=== PATIENT | male | born 1960 | race Caucasian/White ===

== ENCOUNTER 2021-03-28 14:13 | Outpatient (REF) | payer MEDICAID, SELFPAY ==
[2021-03-29 07:32] LABS: Estimated Average Glucose 160 mg/dL; Hemoglobin A1c % 7.2 %
== END 2021-03-28 14:14 | disposition home or self-care (01) ==
LOC: HO.HMGCLDS 14:13
PROVIDERS: PCP Internal Medicine; Visit Provider Internal Medicine
DX: E13.9 Other specified diabetes mellitus without complications (principal)
CPT/HCPCS: 36415; 83036

== ENCOUNTER 2021-10-02 13:05 | Outpatient (REF) | payer MEDICAID, SELFPAY ==
[2021-10-02 13:57] LABS: MANUAL DIFF FLAG NO
[2021-10-02 14:01] LABS: Basophils Percent Auto 0.5 % (0-2); Eosinophils Absolute Auto 0.3 X10*3/uL (0.0-0.4); Eosinophils Percent Auto 4.7 % (0-4); Hematocrit 42.4 % (42.0-52.0); Imm Gran Abs Auto 0.02 X10*3/uL (0.00-0.03); Imm Gran Pct Auto 0.4 % (0.0-0.4); Lymphocytes Absolute Auto 2.3 X10*3/uL (1.2-4.9); Lymphocytes Percent Auto 39.5 % (20-40); Mean Corpuscular Hemoglobin 28.2 pg (27.0-33.0); Mean Corpuscular Volume 85.5 fL (80.0-98.0); Mean Platelet Volume 11.4 fL (9.4-12.4); Monocytes Absolute Auto 0.7 X10*3/uL (0.1-1.2); Monocytes Percent Auto 11.4 % (2-11); Neutrophils Absolute Auto 2.5 x10*3/uL (2.0-8.3); Neutrophils Percent Auto 43.5 % (45-73); Platelet Count 232 X10*3/uL (160-400); Red Blood Count 4.96 X10*6/uL (4.60-5.80); Red Cell Distribution Width 12.8 % (11.0-16.0); White Blood Count 5.7 X10*3/uL (4.8-10.8)
[2021-10-02 14:12] LABS: Estimated Average Glucose 214 mg/dL; Hemoglobin A1c % 9.1 %
[2021-10-02 14:25] LABS: Anion Gap 15 (12-20); Blood Urea Nitrogen 14 mg/dL (9-16); Carbon Dioxide 25 mmol/L (22-29); Chloride 102 mmol/L (96-108); Potassium 4.4 mmol/L (3.3-5.1); Sodium 138 mmol/L (135-145)
[2021-10-02 14:26] LABS: Calcium 9.7 mg/dL (8.4-10.2); Cholesterol 145 mg/dL; Estimated Glomerular Filt Rate > 60; Glucose Random 278 mg/dL (60-115); HDL Cholesterol 40 mg/dL; LDL Cholesterol Calculated 87 mg/dl; Triglycerides 93 mg/dL
== END 2021-10-02 13:06 | disposition home or self-care (01) ==
LOC: HO.HMGCLDS 13:05
PROVIDERS: Visit Provider Internal Medicine
DX: E13.9 Other specified diabetes mellitus without complications (principal); E78.5 Hyperlipidemia, unspecified
CPT/HCPCS: 36415; 80048; 80061; 83036; 85025

== ENCOUNTER 2022-03-28 10:41 | Outpatient (REF) | payer MEDICAID, SELFPAY ==
[2022-03-28 14:10] LABS: Estimated Average Glucose 126 mg/dL
== END 2022-03-28 10:42 | disposition home or self-care (01) ==
LOC: HO.HMGCLDS 10:41
PROVIDERS: PCP Internal Medicine; Visit Provider Internal Medicine
DX: E11.65 Type 2 diabetes mellitus with hyperglycemia (principal)
CPT/HCPCS: 36415; 83036

== ENCOUNTER 2022-06-28 11:40 | Outpatient (REF) | payer MEDICAID, SELFPAY ==
[2022-06-28 14:12] LABS: Cholesterol 170 mg/dL; HDL Cholesterol 58 mg/dL; LDL Cholesterol Calculated 99 mg/dl; Triglycerides 67 mg/dL
== END 2022-06-28 11:41 | disposition home or self-care (01) ==
LOC: HO.HMGCLDS 11:40
PROVIDERS: PCP Internal Medicine; Visit Provider Internal Medicine
DX: E78.5 Hyperlipidemia, unspecified (principal)
CPT/HCPCS: 36415; 80061

== ENCOUNTER 2022-09-14 11:03 | Outpatient (REF) | payer MEDICAID, SELFPAY ==
[2022-09-14 14:05] LABS: MANUAL DIFF FLAG NO
[2022-09-14 14:13] LABS: Basophils Absolute Auto 0.1 X10*3/uL (0.0-0.2); Basophils Percent Auto 0.7 % (0-2); Eosinophils Absolute Auto 0.3 X10*3/uL (0.0-0.4); Eosinophils Percent Auto 3.7 % (0-4); Hematocrit 39.6 % (42.0-52.0); Imm Gran Abs Auto 0.03 X10*3/uL (0.00-0.03); Imm Gran Pct Auto 0.4 % (0.0-0.4); Lymphocytes Absolute Auto 2.5 X10*3/uL (1.2-4.9); Lymphocytes Percent Auto 32.6 % (20-40); Mean Corpuscular HGB Conc 32.8 g/dl (31.0-36.0); Mean Corpuscular Hemoglobin 28.1 pg (27.0-33.0); Mean Corpuscular Volume 85.5 fL (80.0-98.0); Mean Platelet Volume 11.9 fL (9.4-12.4); Monocytes Absolute Auto 0.7 X10*3/uL (0.1-1.2); Monocytes Percent Auto 9.4 % (2-11); Neutrophils Absolute Auto 4.1 x10*3/uL (2.0-8.3); Neutrophils Percent Auto 53.2 % (45-73); Platelet Count 212 X10*3/uL (160-400); Red Blood Count 4.63 X10*6/uL (4.60-5.80); Red Cell Distribution Width 12.3 % (11.0-16.0); White Blood Count 7.6 X10*3/uL (4.8-10.8)
[2022-09-14 14:32] LABS: Anion Gap 11 (12-20); Blood Urea Nitrogen 15 mg/dL (9-16); Calcium 9.7 mg/dL (8.4-10.2); Carbon Dioxide 29 mmol/L (22-29); Chloride 103 mmol/L (96-108); Estimated Glomerular Filt Rate 56; Glucose Random 256 mg/dL (60-115); Potassium 4.8 mmol/L (3.3-5.1); Sodium 138 mmol/L (135-145)
[2022-09-17 00:27] LABS: LDL Cholesterol Direct 75 mg/dL (<100)
== END 2022-09-14 11:04 | disposition home or self-care (01) ==
LOC: HO.HMGCLDS 11:03
PROVIDERS: Visit Provider Internal Medicine
DX: E87.5 Hyperkalemia (principal); E78.5 Hyperlipidemia, unspecified; I10 Essential (primary) hypertension; Z79.899 Other long term (current) drug therapy
CPT/HCPCS: 36415; 80048; 83721; 85025

== ENCOUNTER 2023-05-25 13:01 | Outpatient (REF) | payer MEDICARE, MEDICAID, SELFPAY | END 2023-05-25 13:02 | disposition home or self-care (01) | LOC: HO.HMGCLDS 13:01 | PROVIDERS: PCP Internal Medicine; Visit Provider Internal Medicine | DX: I10 Essential (primary) hypertension (principal); E13.9 Other specified diabetes mellitus without complications; E78.5 Hyperlipidemia, unspecified | CPT/HCPCS: 36415; 80048; 80061; 83036 ==

== ENCOUNTER 2023-12-20 12:27 | Outpatient (REF) | payer MEDICARE, MEDICAID, SELFPAY ==
[2023-12-20 16:17] LABS: Hematocrit 41.1 % (42.0-52.0); Hemoglobin 13.6 g/dl (14.0-18.0); Mean Corpuscular HGB Conc 33.1 g/dl (31.0-36.0); Mean Corpuscular Hemoglobin 28.8 pg (27.0-33.0); Mean Corpuscular Volume 86.9 fL (80.0-98.0); Platelet Count 260 X10*3/uL (160-400); Red Blood Count 4.73 X10*6/uL (4.60-5.80); Red Cell Distribution Width 12.7 % (11.0-16.0); White Blood Count 6.3 X10*3/uL (4.8-10.8)
[2023-12-20 18:56] LABS: Alanine Aminotransferase 14 U/L (0-40); Albumin Level 4.3 g/dL (3.5-5.0); Alkaline Phosphatase 60 U/L (39-117); Anion Gap 16 (12-20); Aspartate Amino Transferase 16 U/L (5-37); Bilirubin Total 0.3 mg/dL (0.0-1.0); Blood Urea Nitrogen 15 mg/dL (9-16); Calcium 9.9 mg/dL (8.4-10.2); Carbon Dioxide 23 mmol/L (22-29); Chloride 103 mmol/L (96-108); Cholesterol 158 mg/dL (<200); Estimated Glomerular Filt Rate > 60; Glucose Random 254 mg/dL (60-115); HDL Cholesterol 59 mg/dL (>40); LDL Cholesterol Calculated 86 mg/dL (<100); Potassium 4.3 mmol/L (3.3-5.1); Sodium 138 mmol/L (135-145); Total Protein 7.2 g/dL (6.5-8.0); Triglycerides 66 mg/dL (<150)
== END 2023-12-20 12:28 | disposition home or self-care (01) ==
LOC: HO.HMGCLDS 12:27
PROVIDERS: PCP Internal Medicine; Visit Provider Internal Medicine
DX: E11.65 Type 2 diabetes mellitus with hyperglycemia (principal); E78.5 Hyperlipidemia, unspecified
CPT/HCPCS: 36415; 80053; 80061; 85027

== ENCOUNTER 2024-04-21 10:18 | Emergency (ER) | payer OTHER, SELFPAY ==
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
[2024-04-21 10:29] VITALS: BP 140/82; BP 189/84; PULSE 134; PULSE 97; RESP 20; TEMP 36.8; O2SAT 97; BMI 27.3
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
[2024-04-21 11:35] VITALS: BP 199/100; PULSE 84; RESP 16
[2024-04-21] MEDS: oxyCODONE HCl Immed Release 5 MG TABLET 20 MG PO (11:37)
[2024-04-21 12:54] VITALS: BP 168/98; PULSE 86; O2SAT 97
[2024-04-21 13:24] VITALS: BP 168/98; PULSE 86; RESP 16; TEMP -17.7; TEMP 0; O2SAT 97
== END 2024-04-21 13:25 | disposition home or self-care (01) ==
PROVIDERS: Emergency Provider Emergency Medicine; PCP Internal Medicine
DX: S13.4XXA Sprain of ligaments of cervical spine, initial encounter (principal); S39.012A Strain of muscle, fascia and tendon of lower back, initial encounter; R51.9 Headache, unspecified; M54.2 Cervicalgia; M53.3 Sacrococcygeal disorders, not elsewhere classified; V43.52XA Car driver injured in collision with other type car in traffic accident, initial encounter; Y93.9 Activity, unspecified; Y92.488 Other paved roadways as the place of occurrence of the external cause; Y99.8 Other external cause status
CPT/HCPCS: 70450; 72100; 72125; 72220; 99283; 99284

== ENCOUNTER 2024-07-01 13:43 | Outpatient (REF) | payer MEDICARE, SELFPAY ==
[2024-07-01 16:45] LABS: Anion Gap 13 (12-20); Blood Urea Nitrogen 17 mg/dL (9-16); Calcium 10.2 mg/dL (8.4-10.2); Carbon Dioxide 26 mmol/L (22-29); Chloride 104 mmol/L (96-108); Estimated Glomerular Filt Rate 59; Glucose Random 270 mg/dL (60-115); Potassium 5.3 mmol/L (3.3-5.1); Sodium 138 mmol/L (135-145)
[2024-07-01 17:03] LABS: Estimated Average Glucose 169 mg/dL; Hemoglobin A1C 203.7001 umol/L; Hemoglobin A1c % 7.5 % (<6.0); Total Hemoglobin (HGBA1C) 3500.1994 umol/L
[2024-07-01 17:04] LABS: Prostate Specific Antigen 1.37 ng/mL (<0.05-4.0)
== END 2024-07-01 13:44 | disposition home or self-care (01) ==
LOC: HO.HMGCLDS 13:43
PROVIDERS: PCP Internal Medicine; Visit Provider Internal Medicine
DX: E13.9 Other specified diabetes mellitus without complications (principal); Z12.5 Encounter for screening for malignant neoplasm of prostate
CPT/HCPCS: 36415; 80048; 83036; 84153

== ENCOUNTER 2024-12-19 10:24 | Outpatient (REF) | payer MEDICARE, MEDICAID, SELFPAY ==
[2024-12-19 12:54] LABS: Anion Gap 14 (12-20); Blood Urea Nitrogen 25 mg/dL (9-16); Calcium 9.5 mg/dL (8.4-10.2); Carbon Dioxide 24 mmol/L (22-29); Chloride 104 mmol/L (96-108); Estimated Glomerular Filt Rate 52; Glucose Random 320 mg/dL (60-115); Potassium 4.4 mmol/L (3.3-5.1); Sodium 138 mmol/L (135-145)
== END 2024-12-19 10:25 | disposition home or self-care (01) ==
LOC: HO.HMGCLDS 10:24
PROVIDERS: PCP Internal Medicine; Visit Provider Internal Medicine
DX: I10 Essential (primary) hypertension (principal)
CPT/HCPCS: 36415; 80048

== ENCOUNTER 2025-04-15 09:37 | Outpatient (REF) | payer MEDICARE, MEDICAID, SELFPAY ==
--- OUTSIDE RECORDS SUMMARY | 2025-04-15 10:44 | XMS_ITS | Encounter Summary ---
Author Organization [facility] Address [address] [place] [address] Phone Care Team Providers Care Hr Business Partner Name Role Phone Shaheen Hay MD Primary Care Provider [phone] Shaheen Hay MD Unavailable [phone] Shaheen Hay MD Primary Care Provider [phone] Encounter Details Date Type Department Care Team (Late st Contact Info) Description 04/20/2020 Procedure Pass [facility] Endoscopy Admitting Dept Virtual Department [address] [place] [address] Social History Tobacco Use Types Packs/Day Years Used Date Smoking Tobacco: Never Assessed Sex and Gender Information Value Date Recorded Sex Assigned at Not on file Legal Sex Male 9:51 PM EDT Gender Identity Not on file Sexual Orientation Not on file documented as of this encounter Plan of Treatment Not on file documented as of this encounter Visit Diagnoses Not on filedocumented in this encounter Care Teams Hr Business Partner Relationship Specialty Start Date End Date Shaheen Hay MD PCP - General Internal Medicine 07/18/17 12/15/24 Shaheen Hay MD [address] [place] [address] PCP - General Internal Medicine 12/16/24 Shaheen Hay MD [address] [place] [address] [email or web address] Insurance Assigned Provider 10/23/19 04/27/23 documented as of this encounter Additional Source Comments The information contained in this document represents components of the legal health record. It is not the complete legal health record.[facility]
--- OUTSIDE RECORDS SUMMARY | 2025-04-15 10:44 | XMS_ITS | Encounter Summary ---
Author Organization [facility] Address [address] [place] [address] Phone Care Team Providers Care Residence Life Coordinator Name Role Phone Shaheen Hay MD Primary Care Provider [phone] Shaheen Hya MD Unavailable [phone] Shaheen Hay MD Primary Care Provider [phone] Encounter Details Date Type Department Care Team (Late st Contact Info) Description 11/10/2019 Procedure Pass [facility] Endoscopy Admitting Dept Virtual Department [address] [place] [address] Social History Tobacco Use Types Packs/Day Years [...] on filedocumented in this encounter Care Teams Residence Life Coordinator Relationship Specialty Start Date End Date Shaheen Hay MD PCP - General Internal Medicine 07/18/17 12/15/24 Shaheen Hay MD [address] [place] [address] PCP - General Internal Medicine 12/16/24 Shaheen Hay MD [address] [place] [address] [email or web address] Insurance Assigned Provider 10/23/19 04/27/23 documented as of this encounter Additional Source Comments The information contained in this document represents components of the legal health record. It is not the complete legal health record.[facility]
--- OUTSIDE RECORDS SUMMARY | 2025-04-15 10:44 | XMS_ITS | Encounter Summary ---
Author Organization [facility] Address [address] [place] [address] Phone Care Team Providers Care Bulk Picker Name Role Phone Shaheen Hay MD Primary Care Provider [phone] Shaheen Hay MD Unavailable [phone] Shaheen Hay MD Primary Care Provider [phone] Encounter Details Date Type Department Care Team (Late st Contact Info) Description 07/06/2020 Procedure Pass [facility] Endoscopy Admitting Dept Virtual Department [address] [place] [address] Social History Tobacco Use Types Packs/Day Years Used Date Smoking Tobacco: Former Cigarettes Q uit: 2013 Smokeless Tobacco: Never Alcohol Use Standard Drinks/Week Comments Not Currently 0 (1 standard drink = 0.6 oz pur e alcohol) Sex and Gender Information Value Date Recorded Sex Assigned at Not on file Legal Sex Male 9:51 PM EDT Gender Identity Not on file Sexual Orientation Not on file documented as of this encounter Plan of Treatment Not on file documented as of this encounter Visit Diagnoses Not on filedocumented in this encounter Care Teams Bulk Picker Relationship Specialty Start Date End Date Shaheen Hay MD PCP - General Internal Medicine 07/18/17 12/15/24 Shaheen Hay MD [address] [place] [id number] PCP - General Internal Medicine 12/16/24 Shaheen Hay MD [address] [place] [address] [email or web address] Insurance Assigned Provider 10/23/19 04/27/23 documented as of this encounter Additional Source Comments The information contained in this document represents components of the legal health record. It is not the complete legal health record.[facility]
--- OUTSIDE RECORDS SUMMARY | 2025-04-15 10:44 | XMS_ITS | Encounter Summary ---
Author Organization [facility] Address [address] [place] [address] Phone Care Team Providers Care Prison Guard Name Role Phone Shaheen Hay MD Primary Care Provider [phone] Shaheen Hay MD Unavailable [phone] Shaheen Hay MD Unavailable [phone] Shaheen Hay MD Primary Care Provider [phone] Encounter Details Date Type Department Care Team (Late st Contact Info) Description 08/26/2019 Procedure Pass [facility] Endoscopy Admitting Dept Virtual Department [address] [place] [address] Social History Tobacco Use Types Packs/Day Years [...] on filedocumented in this encounter Care Teams Prison Guard Relationship Specialty Start Date End Date Shaheen Hay MD PCP - General Internal Medicine 07/18/17 12/15/24 Shaheen Hay MD [address] [place] [address] PCP - General Internal Medicine 12/16/24 Shaheen Hay MD [address] [place] [address] [email or web address] Insurance Assigned Provider 11/16/17 09/18/19 Shaheen Hay MD [address] [place] [address] [email or web address] Insurance Assigned Provider 10/23/19 04/27/23 documented as of this encounter Additional Source Comments The information contained in this document represents components of the legal health record. It is not the complete legal health record.[facility]
--- OUTSIDE RECORDS SUMMARY | 2025-04-15 10:44 | XMS_ITS | Encounter Summary ---
Author Organization [facility] Address [address] [place] [address] Phone Care Team Providers Care Woodworker Helper Name Role Phone Shaheen Hay MD Primary Care Provider [phone] Shaheen Hay MD Unavailable [phone] Shaheen Hay MD Unavailable [phone] Shaheen Hay MD Primary Care Provider [phone] Encounter Details Date Type Department Care Team (Late st Contact Info) Description 01/02/2018 Procedure Pass [facility], [address] [address] Social History Tobacco Use Types Packs/Day Years Used Date Smoking Tobacco: Never Assessed Sex and Gender Information Value Date Recorded Sex Assigned at Not on file Legal Sex Male 9:51 PM EDT Gender Identity Not on file Sexual Orientation Not on file documented as of this encounter Last Filed Vital Signs Vital Sign Reading Time Taken Comments Blood Pressure - - Pulse - - Temperature - - Respiratory Rate - - Oxygen Saturation - - Inhaled Oxygen Concentration - - Weight 90.7 kg (200 lb) 01/03/2018 6:00 PM EDT Height 177.8 cm (5' 10 ) 01/03/2018 6:00 PM EDT Body Mass Index 28.7 01/03/2018 6:00 PM EDT documented in this encounter Plan of Treatment Not on file documented as of this encounter Visit Diagnoses Not on filedocumented in this encounter Care Teams Woodworker Helper Relationship Specialty Start Date End Date Shaheen Hay MD [email or web address] PCP - General Internal Medicine 07/18/17 12/15/24 Shaheen Hay MD [address] [place] [address] [email or web address] PCP - General Internal Medicine 12/16/24 Shaheen Hay MD [address] [place] [address] [email or web address] Insurance Assigned Provider 11/16/17 09/18/19 Shaheen Hay MD [address] [place] [address] [email or web address] Insurance Assigned Provider 10/23/19 04/27/23 documented as of this encounter Additional Source Comments The information contained in this document represents components of the legal health record. It is not the complete legal health record.[facility]
--- OUTSIDE RECORDS SUMMARY | 2025-04-15 10:44 | XMS_ITS | Encounter Summary ---
Author Organization [facility] Address [address] [place] [address] Phone Care Team Providers Care Process Owner Name Role Phone Shaheen Hay MD Primary Care Provider [phone] Encounter Details Date Type Department Care Team (Late st Contact Info) Description 12/29/2024 Procedure Pass [facility] Endoscopy Admitting Dept Virtual Department [address] [place] [address] Social History Tobacco Use Types Packs/Day Years Used Date Smoking Tobacco: Former Cigarettes Q uit: 2013 Smokeless Tobacco: Never Alcohol Use Standard Drinks/Week Comments Not Currently 0 (1 standard drink = 0.6 oz pur e alcohol) Education Answer Date Recorded Are you interested in more education? Not on jenifer e 12/14/2022 Are you concerned about learning? Not on file 12/14/2022 No 12/14/2022 No 12/14/2022 Digital Access Answer Date Recorded No 01/12/2023 No 01/12/2023 Reliable internet access at home? Not on file 01/12/2023 Device with a working camera? Not on file Intimate Partner Violence Answer Date R ecorded Are you denied basic needs s uch as food, clothing, or medical care? No 12/23/2024 In the past 12 months have y ou been in a relationship with a person who hurts, threatens, or tries to control you? No 12/23/2024 Are you denied basic needs s uch as food, clothing, or medical care? No 12/23/2024 In the past 12 months have y ou been in a relationship with a person who hurts, threatens, or tries to control you? No 12/23/2024 Sex and Gender Information Value Date Recorded Sex Assigned at Not on file Legal Sex Male 9:51 PM EDT Gender Identity Not on file Sexual Orientation Not on file documented as of this encounter Plan of Treatment Not on file documented as of this encounter Visit Diagnoses Not on filedocumented in this encounter Care Teams Process Owner Relationship Specialty Start Date End Date Shaheen Hay MD [address] [place] [address] PCP - General Internal Medicine 12/16/24 documented as of this encounter Additional Source Comments The information contained in this document represents components of the legal health record. It is not the complete legal health record.[facility]
--- OUTSIDE RECORDS SUMMARY | 2025-04-15 10:44 | XMS_ITS | Encounter Summary ---
Author Organization [facility] Address [address] [place] [address] Phone Care Team Providers Care Aquaculture And Fisheries Professor Name Role Phone Shaheen Hay MD Primary Care Provider [phone] Shaheen Hay MD Unavailable [phone] Shaheen Hay MD Unavailable [phone] Shaheen Hay MD Primary Care Provider [phone] Encounter Details Date Type Department Care Team (Late st Contact Info) Description 08/05/2018 Ancillary Orders Virtual Department [address] [place] [address] Shaheen Hay MD [address] [place] [address] [id number] [email or web address] Personal history of nicotine dependence Social History Tobacco Use Types Packs/Day Years Used Date Smoking Tobacco: Never Assessed Sex and Gender Information Value Date Recorded Sex Assigned at Not on file Legal Sex Male 9:51 PM EDT Gender Identity Not on file Sexual Orientation Not on file documented as of this encounter Plan of Treatment Not on file documented as of this encounter Visit Diagnoses Diagnosis Personal history of nicotine dependence documented in this encounter Care Teams Aquaculture And Fisheries Professor Relationship Specialty Start Date End Date Shaheen Hay MD [email or web address] PCP - General Internal Medicine 07/18/17 12/15/24 Shaheen Hay MD [address] [place] [address] [email or web address] PCP - General Internal Medicine 12/16/24 Shaheen Hay MD [address] [place] [address] [email or web address] Insurance Assigned Provider 11/16/17 09/18/19 Shaheen Hay MD [address] [place] [address] [email or web address] Insurance Assigned Provider 10/23/19 04/27/23 documented as of this encounter Additional Source Comments The information contained in this document represents components of the legal health record. It is not the complete legal health record.[facility]
--- OUTSIDE RECORDS SUMMARY | 2025-04-15 10:44 | XMS_ITS | Clinical Summary ---
Author Organization [facility] Address [address] [place] [address] Phone Care Team Providers Care Atmospheric Technician Name Role Phone Mohamud Gonzalez MD Primary Care Provider [phone] Allergies Active Allergy Reactions Criticality Noted Date Comments Amoxicillin 07/04/2020 Medications lisinopril (PRINIVIL,ZESTR IL) 5 MG tablet Take 5 mg by mouth daily. Active metFORMIN (GLUCOPHAGE) 1000 MG tablet Take 1,000 mg by mouth 2 (two) times a day with meals. Active omeprazole (PRILOSEC) 20 mg TbEC Take 20 mg by mouth daily before breakfast. Active pravastatin (PRAVACHOL) 40 MG tablet Take 40 mg by mouth daily. Active QUEtiapine (SEROQUEL) 400 MG tablet Take 400 mg by mouth nightly at bedtime. Active oxyCODONE HCl 20 mg Tab Take 5 mg by mouth every 4 (four) hours as needed. {PARTIAL FILL:10677} Active Active Problems No known active problems Social History Tobacco Use Types Packs/Day Years Used Date Smoking Tobacco: Former Cigarettes Q uit: 2013 Smokeless Tobacco: Never Tobacco Cessation:Counseling Given: Not Answered Alcohol Use Standard Drinks/Week Comments Not Currently [...] on file Sexual Orientation Not on file Last Filed Vital Signs Vital Sign Reading Time Taken Comments Blood Pressure 136/74 07/06/2020 8:15 AM EST Pulse - - Temperature 36.2 C (97.2 F) 07/06/2020 8:15 AM EST Respiratory Rate 16 07/06/2020 6:59 AM EST Oxygen Saturation 99% 07/06/2020 8:15 AM EST Inhaled Oxygen Concentration - - Weight 86.2 kg (190 lb) 12/23/2024 2:52 PM EDT Height 177.8 cm (5' 10 ) 12/23/2024 2:52 PM EDT Body Mass Index 27.26 12/23/2024 2:52 PM EDT Plan of Treatment Health Maintenance Due Date Last Done Comments CREATININE LEVEL 1958 POTASSIUM LEVEL 1958 DEPRESSION SCREENING 1970 SMOKING Hx and SMOKELESS TOBACCO SCREENING 1971 HEPATITIS C SCREENING 1976 COLOGUARD 2003 FIT TEST 2003 FOBT 2003 SIGMOIDOSCOPY 2003 VIRTUAL COLONOSCOPY 2003 PNEUMOCOCCAL VACCINES (50+ years) (2 of 2 - PCV) 08/28/2013 08/28/2012 ZOSTER VACCINES (2 of 2) 09/09/2018 07/15/2018 ABDOMINAL AORTIC ANEURYSM (AAA) SCREENING 2023 COVID-19 VACCINE (4 - 2023-2 5 season) 2024 08/03/2021, 12/29/2020, 12/08/2020 SCREENING FOR DIABETES 02/14/2026 02/14/2023 LIPID PANEL 02/15/2028 02/14/2023, 02/14/2023, 02/14/2023 COLONOSCOPY 07/06/2030 07/06/2020 COLORECTAL CANCER SCREENING 07/06/2030 Adult Td,Tdap Booster 02/14/2033 02/14/2023 , 08/28/2012, 08/28/2010 RSV VACCINE (1 - 1-dose 75+ series) 2033 HEPATITIS A VACCINES Aged Out No long er eligible based on patient's age to complete this topic HIB VACCINES Aged Out No longer eligi ble based on patient's age to complete this topic MENINGOCOCCAL VACCINES (ACWY) Aged Out No longer eligible based on patient's age to complete this topic MENINGOCOCCAL VACCINES (B) Aged Out N o longer eligible based on patient's age to complete this topic Medical Devices Not on file Procedures Procedure Name Priority Date/Time Associated Diagnosis Comments ENDOSCOPY, COLON 07/06/2020 7:26 AM EST from Last 3 Months or Most Recently Relevant to Health Maintenance Results * ENDOSCOPY, COLON (07/06/2020 7:26 AM EST) Narrative Transcriptions Feliz Nayak MD - 07/06/2020 7:26 AM EST Patient Name: Vimal Ricardo Attending MD:: Feliz NAYAK MD Procedure Date: 07/06/2020 7:26 AM Date of : 1960 Age: 60 Admit Type: Outpatient Gender: Male Room: [facility] Referring MD: MOHAMUD GONZALEZ MD Exam Type: Colonoscopy Indications: Anderson-rectal cancer screening, family history ofcolon cancer (father), last colonoscopy July Medications: Propofol per Anesthesia Procedure: Informed consent was obtained from the patient after discussion of the indications, limitations, alternatives, benefits, and risks of the procedure. Risks specifically discussed include but are not limited to missed lesions, bleeding, perforation, or the need for emergent surgery. Throughout the procedure, the patient's bloodpressure, pulse, end-tidal CO2, and oxygen saturations were monitored continuously. The Olympus pediatric variable [id number] #3 was introduced through the anus and advanced tothe cecum, identified by seeing the appendiceal orificeand ileocecal valve. The exam was performed without difficulty, was well tolerated by the patient, andthe quality of the bowel prep was good. Complications: There were no immediate complications. There were no specimens. Blood loss - 0 Findings: Digital rectal exam was normal. There was mild diverticulosis of the sigmoid colon. This is a new finding since the patient's prior colonoscopy in 2013 The remainder of the exam was otherwiseunremarkable, i.e., no polyps, tumors, vascular lesions, or areasof inflammation. Impression: -Mild sigmoid diverticulosis Recommendation: - The patient is advised to follow a high fiber diet and/or use a fiber supplement for management of his diverticulosis - Repeat colonoscopy in 5 years. A YUDITH NAYAK MD 07/06/2020 8:24:59 AM This report has been signed electronically. Number of Addenda: 0 Note Initiated On: 07/06/2020 7:26 AM Procedure Code(s): --- Professional --- 17027, Colonoscopy, flexible; diagnostic, including collection of specimen(s) by brushing or washing, when performed (separateprocedure) --- Technical --- 67204, Colonoscopy, flexible; diagnostic, including collection of specimen(s) by brushing or washing, when performed (separateprocedure) CPT copyright 2018 [employer]. All rights reserved. The codes documented in this report are preliminary and upon garment sorter reviewmay be revised to meet current compliance requirements. Procedure Date: 07/06/2020 7:26:09 AM [address] [place] [address] Mohamud Gonzalez MD GI PROCEDURE ORDERABLES Final R esult from Last 3 Months or Most Recently Relevant to Health Maintenance Insurance [facility] & B [facility]IC[facility] PART A & B [facility] A & B [facility] MEDIC[facility] PART A & B [facility] PART A & B [facility] MEDIC[facility] PART A & B Care Teams Atmospheric Technician Relationship Specialty Start Date End Date Mohamud Gonzalez MD [address] [place] [address] [email or web address] PCP - General Internal Medicine 12/16/24 Additional Source Comments The information contained in this document represents components of the legal health record. It is not the complete legal health record.[facility]
--- OUTSIDE RECORDS SUMMARY | 2025-04-15 10:44 | XMS_ITS | Encounter Summary ---
Author Organization [facility] Address [address] [address] [place] [address] Phone Care Team Providers Care Research And Development Manager Name Role Phone Shaheen Hay MD Primary Care Provider [phone] Shaheen Hay MD Unavailable [phone] Shaheen Hay MD Unavailable [phone] Shaheen Hay MD Primary Care Provider [phone] Reason for Referral * MRI/CAT Scan - Closed Specialty Diagnoses / Procedures Referred By Contac t Referred To Contact Radiology Diagnoses Encounter for screening for malignant neoplasm of lung Procedures CT Chest Lung Cancer Screening Shaheen Hay MD Phone: tel: fax: [email or web address] Referral ID Status Reason Start Date Expiration Date Visits Re quested Visits Authorized [id number] Closed 07/15/2017 09/13/2017 1 1 Encounter Details Date Type Department Care Team (Late st Contact Info) Description 07/18/2017 Ancillary Orders Virtual Department [address] [place] [address] Shaheen Hay MD [address] [place] [address] [email or web address] Encounter for screening for malignant neoplasm of lung Social History Tobacco Use Types Packs/Day Years Used Date Smoking Tobacco: Never Assessed Sex and Gender Information Value Date Recorded Sex Assigned at Not on file Legal Sex Male 9:51 PM EDT Gender Identity Not on file Sexual Orientation Not on file documented as of this encounter Plan of Treatment Not on file documented as of this encounter Results * CT CHEST LUNG CANCER SCREENING INITIAL (08/06/2017 2:12 PM EST) Anatomical Region Laterality Modality Chest Computed Tomogra phy 08/06/2017 2:24 PM EST Impressions 08/06/2017 2:28 PM EST No findings of concern for pulmonary malignancy identified. LUNG RAD: LUNG RAD CATEGORY 1 - NEGATIVE TOTAL CTDIvol: 2.40 mGy POS [id number] Narrative 08/06/2017 2:28 PM EST HISTORY: Low dose CT lung cancer screening. TECHNIQUE: Non-contrast, low dose axial CT with sagittal and coronal reconstructions. COMPARISON EXAM: None This is a 57-year-old year old patient referred for Low Dose CT Lung Cancer Screening (LDCT). The patient has no signs or symptoms of lung cancer and has a 30-pack year or greater history of tobacco smoking. They are a current smoker or have quit smoking within the last 15 years and have a written order for LDCT from a qualified health professional following a lung cancer screening counseling that attests to shared decision-making having taken place before their first screening CT. The patient is also offered smoking cessation material at the time of the LDCT. Automated exposure control utilized. RESULTS: Right lung: No findings of concern Left lung: No findings of concern Mediastinum and yasmany: Small non-specific mediastinal lymph nodes are present with coronary artery calcifications noted. Chest wall and thoracic inlet: The thyroid gland is unremarkable. No axillary pathology is noted. Abdominal structures including liver, spleen, bowel, adrenals: No focal hepatic or splenic lesions are seen in the areas that are visualized. No adrenal mass is noted. Bones and other: There are [id number]-aq-[id number] degenerative changes in the thoracic spine. No compression fracture is seen. Procedure Note Neil Brown MD - 08/06/2017 HISTORY: Low dose CT lung cancer screening. TECHNIQUE: Non-contrast, low dose axial CT with sagittal and coronalreconstructions. COMPARISON EXAM: None This is a 57-year-old year old patient referred for Low Dose CT LungCancer Screening (LDCT). The patient has no signs or symptoms of lungcancer and has a 30-pack year or greater history of tobacco smoking. Theyare a current smoker or have quit smoking within the last 15 years andhave a written order for LDCT from a qualified health professionalfollowing a lung cancer screening counseling that attests to shareddecision-making having taken place before their first screening CT. Thepatient is also offered smoking cessation material at the time of theLDCT. Automated exposure control utilized. RESULTS: Right lung: No findings of concern Left lung: No findings of concern Mediastinum and yasmany: Small non-specific mediastinal lymph nodes arepresent with coronary artery calcifications noted. Chest wall and thoracic inlet: The thyroid gland is unremarkable. Noaxillary pathology is noted. Abdominal structures including liver, spleen, bowel, adrenals: No focalhepatic or splenic lesions are seen in the areas that are visualized. Noadrenal mass is noted. Bones and other: There are zqbb-sf-hxiudple degenerative changes in thethoracic spine. No compression fracture is seen. IMPRESSION: No findings of concern for pulmonary malignancy identified. LUNG RAD: LUNG RAD CATEGORY 1 - NEGATIVE TOTAL CTDIvol: 2.40 mGy POS [id number] Shaheen Hay MD IM CT CHEST Final Result documented in this encounter Visit Diagnoses Diagnosis Encounter for screening for malignant neoplasm of lung Encounter for screening for malignant neoplasm of lung documented in this encounter Care Teams Research And Development Manager Relationship Specialty Start Date End Date Shaheen Hay MD [email or web address] PCP - General Internal Medicine 07/18/17 12/15/24 Shaheen Hay MD [address] [place] [address] [email or web address] PCP - General Internal Medicine 12/16/24 Shaheen Hay MD [address] [place] [address] [email or web address] Insurance Assigned Provider 11/16/17 09/18/19 Shaheen Hay MD [address] [place] [address] [email or web address] Insurance Assigned Provider 10/23/19 04/27/23 documented as of this encounter Additional Source Comments The information contained in this document represents components of the legal health record. It is not the complete legal health record.[facility]
--- OUTSIDE RECORDS SUMMARY | 2025-04-15 10:44 | XMS_ITS | Encounter Summary ---
Author Organization [facility] Address [address] [facility] [address] [place] [address] Phone Care Team Providers Care Jalousie Installer Name Role Phone Shaheen Hay MD Primary Care Provider [phone] Shhaeen Hay MD Unavailable [phone] Shaheen Hay MD Unavailable [phone] Shaheen Hay MD Primary Care Provider [phone] Encounter Details Date Type Department Care Team (Late st Contact Info) Description 01/02/2018 Ancillary Orders Virtual Department [address] [place] [address] Osito Alejandra MD [address] [place] [address] [email or web address] Right shoulder pain, unspecified chronicity Social History Tobacco Use Types Packs/Day Years Used Date Smoking Tobacco: Never Assessed Sex and Gender Information Value Date Recorded Sex Assigned at Not on file Legal Sex Male 9:51 PM EDT Gender Identity Not on file Sexual Orientation Not on file documented as of this encounter Plan of Treatment Not on file documented as of this encounter Results * MRI SHOULDER WITHOUT CONTRAST (RIGHT) (01/09/2018 9:51 PM EDT) Anatomical Region Laterality Modality Shoulder Right Magnetic Resonan ce 01/10/2018 7:26 AM EDT Impressions 01/10/2018 7:33 AM EDT 1. Partial-thickness supraspinatus tendon tear. 2. 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 3. Anterior superior labral congenital variation versus tear. 4. Subcoracoid bursitis. POS - [id number] Narrative 01/10/2018 7:33 AM EDT COMPARISON: None. TECHNIQUE: Exam performed on a 1.5 Jory high-field MRI scanner. Axial T1 and proton density with fat suppression, oblique coronal proton density with fat suppression and T2 with fat suppression, oblique sagittal T1 and T2 with fat suppression sequences were obtained. MRI RIGHT SHOULDER FINDINGS: Acromion: No os acromiale. Type II acromium. No anterior downsloping or significant lateral downsloping. Rotator cuff muscle/tendon: There is linear fluid signal intensity within the distal supraspinatus tendon along the humeral surface consistent with a partial-thickness tear. Subscapularis tendon is intact. There is no rotator cuff muscle edema or atrophy. Labrum/biceps tendon: Biceps tendon is intact. There is a linear T2 hyperintense cleft in the anterior superior labrum representing either a congenital variant or labral tear. Bone marrow/joint: Moderate AC joint arthritis with joint space narrowing, fluid and downward projecting osteophytes causing mass effect upon the supraspinatus. Glenohumeral joint space is maintained. No malalignment. No concerning marrow signal changes. Small joint effusion. Small amount of fluid in subcoracoid bursa. No suprascapular or spinoglenoid notch mass. Procedure Note Jt Welch MD - 01/10/2018 COMPARISON: None. TECHNIQUE: Exam performed on a 1.5 Jory high-field MRI scanner. Axial T1and proton density with fat suppression, oblique coronal proton densitywith fat suppression and T2 with fat suppression, oblique sagittal T1 andT2 with fat suppression sequences were obtained. MRI RIGHT SHOULDER FINDINGS: Acromion: No os acromiale. Type II acromium. No anterior downsloping orsignificant lateral downsloping. Rotator cuff muscle/tendon: There is linear fluid signal intensity withinthe distal supraspinatus tendon along the humeral surface consistent witha partial- thickness tear. Subscapularis tendon is intact. There is norotator cuff muscle edema or atrophy. Labrum/biceps tendon: Biceps tendon is intact. There is a linear [id number] cleft in the anterior superior labrum representing either acongenital variant or labral tear. Bone marrow/joint: Moderate AC joint arthritis with joint spacenarrowing, fluid and downward projecting osteophytes causing mass effectupon the supraspinatus. Glenohumeral joint space is maintained. Nomalalignment. No concerning marrow signal changes. Small joint effusion.Small amount of fluid in subcoracoid bursa. No suprascapular orspinoglenoid notch mass. IMPRESSION: 1. Partial-thickness supraspinatus tendon tear. 2. Moderate AC joint arthritis with downward projecting osteophytes whichmay contribute to impingement. 3. Anterior superior labral congenital variation versus tear. 4. Subcoracoid bursitis. POS - [id number] Osito Alejandra MD IMG MR EXTREMITY Final Resul t documented in this encounter Visit Diagnoses Diagnosis Right shoulder pain, unspecified chronicity Right shoulder pain, unspecified chronicity documented in this encounter Care Teams Jalousie Installer Relationship Specialty Start Date End Date Shaheen Hay MD [email or web address] PCP - General Internal Medicine 07/18/17 12/15/24 Shaheen Hay MD [address] [place] [address] [email or web address] PCP - General Internal Medicine 12/16/24 Shaheen Hay MD [address] [place] [address] [email or web address] Insurance Assigned Provider 11/16/17 09/18/19 Shaheen Hay MD [address] [place] [address] [email or web address] Insurance Assigned Provider 10/23/19 04/27/23 documented as of this encounter Additional Source Comments The information contained in this document represents components of the legal health record. It is not the complete legal health record.[facility]
--- OUTSIDE RECORDS SUMMARY | 2025-04-15 10:44 | XMS_ITS | Encounter Summary ---
Author Organization [facility] Address [address] [place] [address] Phone Care Team Providers Care Loan Review Manager Name Role Phone Shaheen Hay MD Primary Care Provider [phone] Shaheen Hay MD Unavailable [phone] Shaheen Hay MD Unavailable [phone] Shaheen Hay MD Primary Care Provider [phone] Encounter Details Date Type Department Care Team (Late st Contact Info) Description 07/18/2017 Procedure Pass [facility], Ct Scan - [address] [address] Social History Tobacco Use Types Packs/Day Years [...] on filedocumented in this encounter Care Teams Loan Review Manager Relationship Specialty Start Date End Date Shaheen Hay MD PCP - General Internal Medicine 07/18/17 12/15/24 Shaheen Hay MD [address] [place] [address] PCP - General Internal Medicine 12/16/24 Shaheen Hay MD [address] [place] [address] [email or web address] Insurance Assigned Provider 11/16/17 09/18/19 Shaheen Hay MD [address] [place] [address] [email or web address] Insurance Assigned Provider 10/23/19 04/27/23 documented as of this encounter Additional Source Comments The information contained in this document represents components of the legal health record. It is not the complete legal health record.[facility]
[2025-04-15 13:33] LABS: Hemoglobin A1C 190.8012 umol/L; Total Hemoglobin (HGBA1C) 3210.5816 umol/L
== END 2025-04-15 09:38 | disposition home or self-care (01) ==
LOC: HO.HMGCLDS 09:37
PROVIDERS: PCP Internal Medicine; Visit Provider Internal Medicine
DX: E11.65 Type 2 diabetes mellitus with hyperglycemia (principal)
CPT/HCPCS: 36415; 83036

== ENCOUNTER 2025-08-03 09:43 | Outpatient (REF) | payer MEDICARE, MEDICAID, SELFPAY ==
--- OUTSIDE RECORDS SUMMARY | 2025-08-03 11:35 | XMS_ITS | Encounter Summary ---
Author Organization [facility] Address [address] [place] [address] Phone Care Team Providers Care Marine Fitter Name Role Phone Shaheen Hay MD Primary Care Provider [phone] Encounter Details Date Type Department Care Team (Late st Contact Info) Description 12/29/2024 Procedure Pass [facility] Endoscopy Admitting Dept Virtual Department [address] [place] [address] Social History Tobacco Use Types Packs/Day Years [...] on filedocumented in this encounter Care Teams Marine Fitter Relationship Specialty Start Date End Date Shaheen Hay MD [address] [place] [address] [email or web address] PCP - General Internal Medicine 12/16/24 documented as of this encounter Additional Source Comments The information contained in this document represents components of the legal health record. It is not the complete legal health record.[facility]
--- OUTSIDE RECORDS SUMMARY | 2025-08-03 11:35 | XMS_ITS | Encounter Summary ---
Author Organization [facility] Address [address] [facility] [address] [place] [address] Phone Care Team Providers Care Gourmet Coffee Attendant Name Role Phone Shaheen Hay MD Primary Care Provider [phone] Shaheen Hay MD Unavailable [phone] Shaheen Hay MD Unavailable [phone] Shaheen Hay MD Primary Care Provider [phone] Encounter Details Date Type Department Care Team (Late st Contact Info) Description 08/26/2019 Procedure Pass [facility] Endoscopy Admitting Dept Virtual Department [address] [place] [address] Social History Tobacco Use Types Packs/Day Years [...] on filedocumented in this encounter Care Teams Gourmet Coffee Attendant Relationship Specialty Start Date End Date Shaheen Hay MD PCP - General Internal Medicine 07/18/17 12/15/24 Shaheen Hay MD [address] [place] [address] PCP - General Internal Medicine 12/16/24 Shaheen Hay MD [address] [place] [address] [email or web address] Insurance Assigned Provider 11/16/17 09/18/19 Shaheen Hay MD [address] [place] [address] [email or web address] Insurance Assigned Provider 10/23/19 04/27/23 documented as of this encounter Additional Source Comments The information contained in this document represents components of the legal health record. It is not the complete legal health record.[facility]
--- OUTSIDE RECORDS SUMMARY | 2025-08-03 11:35 | XMS_ITS | Encounter Summary ---
Author Organization [facility] Address [address] [place] [address] Phone Care Team Providers Care Icebox Man Name Role Phone Shaheen Hay MD Primary Care Provider [phone] Shaheen Hay MD Unavailable [phone] Shaheen Hay MD Primary Care Provider [phone] Encounter Details Date Type Department Care Team (Late st Contact Info) Description 07/06/2020 Procedure Pass [facility] Endoscopy Admitting Dept Virtual Department [address] [place] [address] Social History Tobacco Use Types Packs/Day Years [...] on filedocumented in this encounter Care Teams Icebox Man Relationship Specialty Start Date End Date Shaheen Hay MD PCP - General Internal Medicine 07/18/17 12/15/24 Shaheen Hay MD [address] [place] [address] PCP - General Internal Medicine 12/16/24 Shaheen Hay MD [address] [place] [address] [email or web address] Insurance Assigned Provider 10/23/19 04/27/23 documented as of this encounter Additional Source Comments The information contained in this document represents components of the legal health record. It is not the complete legal health record.[facility]
--- OUTSIDE RECORDS SUMMARY | 2025-08-03 11:35 | XMS_ITS | Clinical Summary ---
Author Organization [facility] Address [address] [place] [address] Phone Care Team Providers Care Music Cataloguer Name Role Phone Mohamud Gonzalez MD Primary Care Provider [phone] Allergies Active Allergy Reactions Criticality Noted Date [...] every 4 (four) hours as needed. {PARTIAL FILL:83206} Active Active Problems No known active problems [...] 07/15/2018 ABDOMINAL AORTIC ANEURYSM (AAA) SCREENING 2023 INFLUENZA VACCINE (#1) 2025 4, 08/20/2023, 07/26/2022, Additional history exists COVID-19 VACCINE (4 - 2025-26 season) 2025 08/03/2021, 12/29/2020, 12/08/2020 SCREENING FOR DIABETES 02/14/2026 02/14/2023 LIPID PANEL 02/15/2028 02/14/2023, 01/18, 02/14/2023 COLONOSCOPY 07/06/2030 07/06/2020 COLORECTAL CANCER SCREENING [...] 62 Admit Type: Outpatient Gender: Male Room: [facility] 02 Referring MD: MOHAMUD GONZALEZ MD Exam Type: Colonoscopy Indications: Pollock-rectal cancer screening, family history ofcolon cancer (father), [...] 7:26 AM Procedure Code(s): --- Professional --- 76779, Colonoscopy, flexible; diagnostic, including collection of specimen(s) by brushing or washing, when performed (separateprocedure) --- Technical --- 72774, Colonoscopy, flexible; diagnostic, including collection of specimen(s) by brushing or washing, when performed (separateprocedure) CPT copyright 2018 [employer]. All rights reserved. The codes documented in this report are preliminary and upon program manager reviewmay be revised to meet current compliance requirements. Procedure Date: 07/06/2020 7:26:[address] [place] [address] Mohamud Gonzalez MD GI PROCEDURE ORDERABLES Final R esult from Last 3 Months or Most Recently Relevant to Health Maintenance Insurance [facility] MEDICARE PART A & B [facility] MEDICARE PART A & B [facility] & [facility] & [facility] PART A & B Care Teams Music Cataloguer Relationship Specialty Start Date End Date Mohamud Gonzalez MD [address] [place] [address] [email or web address] PCP - General Internal Medicine 12/16/24 Additional Source Comments The information contained in this document represents components of the legal health record. It is not the complete legal health record.[facility]
--- OUTSIDE RECORDS SUMMARY | 2025-08-03 11:35 | XMS_ITS | Encounter Summary ---
Author Organization [facility] Address [address] [facility] [address] [place] [address] Phone Care Team Providers Care Truck Service Manager Name Role Phone Shaheen Hay MD Primary Care Provider [phone] Shaheen Hay MD Unavailable [phone] Shaheen Hay MD Primary Care Provider [phone] Encounter Details Date Type Department Care Team (Late st Contact Info) Description 04/20/2020 Procedure Pass [facility] Endoscopy Admitting Dept Virtual Department [address] [place] [address] Social History Tobacco Use Types Packs/Day Years [...] on filedocumented in this encounter Care Teams Truck Service Manager Relationship Specialty Start Date End Date Shaheen Hay MD PCP - General Internal Medicine 07/18/17 12/15/24 Shaheen Hay MD [address] [place] [address] PCP - General Internal Medicine 12/16/24 Shaheen Hay MD [address] [place] [address] [email or web address] Insurance Assigned Provider 10/23/19 04/27/23 documented as of this encounter Additional Source Comments The information contained in this document represents components of the legal health record. It is not the complete legal health record.[facility]
--- OUTSIDE RECORDS SUMMARY | 2025-08-03 11:35 | XMS_ITS | Encounter Summary ---
Author Organization [facility] Address [address] [facility] [address] [place] [address] Phone Care Team Providers Care Kinder Teacher Name Role Phone Shaheen Hay MD Primary Care Provider [phone] Shaheen Hay MD Unavailable [phone] Shaheen Hay MD Unavailable [phone] Shaheen Hay MD Primary Care Provider [phone] Encounter Details Date Type Department Care Team (Late st Contact Info) Description 01/02/2018 Procedure Pass [facility], [address] [address] Social History Tobacco Use Types Packs/Day Years [...] on filedocumented in this encounter Care Teams Kinder Teacher Relationship Specialty Start Date End Date Shaheen Hay MD [email or web address] PCP - General Internal Medicine 07/18/17 12/15/24 Shaheen Hay MD [address] [place] [address] [email or web address] PCP - General Internal Medicine 12/16/24 Shaheen Hay MD [address] [place] [address] [email or web address] Insurance Assigned Provider 11/16/17 09/18/19 Shaheen Hay MD [address] [place] [address] [email or web address] Insurance Assigned Provider 10/23/19 04/27/23 documented as of this encounter Additional Source Comments The information contained in this document represents components of the legal health record. It is not the complete legal health record.[facility]
--- OUTSIDE RECORDS SUMMARY | 2025-08-03 11:35 | XMS_ITS | Encounter Summary ---
Author Organization [facility] Address [address] [facility] [address] [place] [address] Phone Care Team Providers Care Ballet Master/Mistress Name Role Phone Shaheen Hay MD Primary Care Provider [phone] Shaheen Hay MD Unavailable [phone] Shaheen Hay MD Unavailable [phone] Shaheen Hay MD Primary Care Provider [phone] Encounter Details Date Type Department Care Team (Late st Contact Info) Description 07/18/2017 Procedure Pass [facility], Ct Scan - [address] [address] Social History Tobacco Use Types Packs/Day Years [...] on filedocumented in this encounter Care Teams Ballet Master/Mistress Relationship Specialty Start Date End Date Shaheen Hay MD PCP - General Internal Medicine 07/18/17 12/15/24 Shaheen Hay MD [address] [place] [address] PCP - General Internal Medicine 12/16/24 Shaheen Hay MD [address] [place] [address] [email or web address] Insurance Assigned Provider 11/16/17 09/18/19 Shaheen Hay MD [address] [place] [address] [email or web address] Insurance Assigned Provider 10/23/19 04/27/23 documented as of this encounter Additional Source Comments The information contained in this document represents components of the legal health record. It is not the complete legal health record.[facility]
--- OUTSIDE RECORDS SUMMARY | 2025-08-03 11:35 | XMS_ITS | Encounter Summary ---
Author Organization [facility] Address [address] [facility] [address] [place] [address] Phone Care Team Providers Care Twill Cutter Name Role Phone Shaheen Hay MD Primary Care Provider [phone] Shaheen Hay MD Unavailable [phone] Shaheen Hay MD Primary Care Provider [phone] Encounter Details Date Type Department Care Team (Late st Contact Info) Description 11/10/2019 Procedure Pass [facility] Endoscopy Admitting Dept Virtual Department [address] [place] [address] Social History Tobacco Use Types Packs/Day Years [...] on filedocumented in this encounter Care Teams Twill Cutter Relationship Specialty Start Date End Date Shaheen Hay MD PCP - General Internal Medicine 07/18/17 12/15/24 Shaheen Hay MD [address] [place] [address] PCP - General Internal Medicine 12/16/24 Shaheen Hay MD [address] [place] [address] [email or web address] Insurance Assigned Provider 10/23/19 04/27/23 documented as of this encounter Additional Source Comments The information contained in this document represents components of the legal health record. It is not the complete legal health record.[facility]
--- OUTSIDE RECORDS SUMMARY | 2025-08-03 11:35 | XMS_ITS | Encounter Summary ---
Author Organization [facility] Address [address] [facility] [address] [place] [address] Phone Care Team Providers Care Machine Binding Folder Name Role Phone Shaheen Hay MD Primary Care Provider [phone] Shaheen Hay MD Unavailable [phone] Shaheen Hay MD Unavailable [phone] Shaheen Hay MD Primary Care Provider [phone] Encounter Details Date Type Department Care Team (Late st Contact Info) Description 01/02/2018 Ancillary Orders Virtual Department [address] [place] [address] Osito Alejandra MD [address] [place] [address] [email or web address] Right shoulder pain, unspecified chronicity Social History [...] versus tear. 4. Subcoracoid bursitis. POS - [id number] Narrative 01/10/2018 7:33 AM EDT COMPARISON: None. [...] tendon is intact. There is a linear [id number] cleft in the anterior superior labrum representing [...] versus tear. 4. Subcoracoid bursitis. POS - [id number] Osito Alejandra MD IMG MR EXTREMITY Final Resul t documented in this encounter Visit Diagnoses Diagnosis Right shoulder pain, unspecified chronicity Right shoulder pain, unspecified chronicity documented in this encounter Care Teams Machine Binding Folder Relationship Specialty Start Date End Date Shaheen Hay MD [email or web address] PCP - General Internal Medicine 07/18/17 12/15/24 Shaheen Hay MD [address] [place] [address] [email or web address] PCP - General Internal Medicine 12/16/24 Shaheen Hay MD [address] [place] [address] [email or web address] Insurance Assigned Provider 11/16/17 09/18/19 Shaheen Hay MD [address] [place] [address] [email or web address] Insurance Assigned Provider 10/23/19 04/27/23 documented as of this encounter Additional Source Comments The information contained in this document represents components of the legal health record. It is not the complete legal health record.[facility]
--- OUTSIDE RECORDS SUMMARY | 2025-08-03 11:35 | XMS_ITS | Encounter Summary ---
Author Organization [facility] Address [address] [facility] [address] [place] [address] Phone Care Team Providers Care Polish Compounder Name Role Phone Shaheen Hay MD Primary Care Provider [phone] Shaheen Hay MD Unavailable [phone] Shaheen Hay MD Unavailable [phone] Shaheen Hay MD Primary Care Provider [phone] Encounter Details Date Type Department Care Team (Late st Contact Info) Description 08/05/2018 Ancillary Orders Virtual Department [address] [place] [address] Shaheen Hay MD [address] [place] [phone] [email or web address] Personal history of nicotine dependence Social History [...] dependence documented in this encounter Care Teams Polish Compounder Relationship Specialty Start Date End Date Shaheen Hay MD [email or web address] PCP - General Internal Medicine 07/18/17 12/15/24 Shaheen Hay MD [address] [place] [address] [email or web address] PCP - General Internal Medicine 12/16/24 Shaheen Hay MD [address] [place] [address] [email or web address] Insurance Assigned Provider 11/16/17 09/18/19 Shaheen Hay MD [address] [place] [address] [email or web address] Insurance Assigned Provider 10/23/19 04/27/23 documented as of this encounter Additional Source Comments The information contained in this document represents components of the legal health record. It is not the complete legal health record.[facility]
--- OUTSIDE RECORDS SUMMARY | 2025-08-03 11:35 | XMS_ITS | Encounter Summary ---
Author Organization [facility] Address [address] [facility] [address] [place] [address] Phone Care Team Providers Care Joy Loading Machine Operator Name Role Phone Shaheen Hay MD Primary Care Provider [phone] Shaheen Hay MD Unavailable [phone] Shaheen Hay MD Unavailable [phone] Shaheen Hay MD Primary Care Provider [phone] Reason for Referral * MRI/CAT Scan - Closed Specialty Diagnoses / Procedures Referred By Contac t Referred To Contact Radiology Diagnoses Encounter for screening for malignant neoplasm of lung Procedures CT Chest Lung Cancer Screening Shaheen Hay MD Phone: tel: fax: [email or web address] Referral ID Status Reason Start Date Expiration Date Visits Re quested Visits Authorized [id number] Closed 07/15/2017 09/13/2017 1 1 Encounter Details Date Type Department Care Team (Late st Contact Info) Description 07/18/2017 Ancillary Orders Virtual Department [address] [place] [address] Shaheen Hay MD [address] [place] [address] [email or web address] Encounter for screening for malignant neoplasm of [...] - NEGATIVE TOTAL CTDIvol: 2.40 mGy POS [id number] Narrative 08/06/2017 2:28 PM EST HISTORY: Low [...] is noted. Bones and other: There are dibv-wn-asqeybbm degenerative changes in the thoracic spine. No [...] is noted. Bones and other: There are nljt-lh-lhtuycbi degenerative changes in thethoracic spine. No compression fracture is seen. IMPRESSION: No findings of concern for pulmonary malignancy identified. LUNG RAD: LUNG RAD CATEGORY 1 - NEGATIVE TOTAL CTDIvol: 2.40 mGy POS [id number] Shaheen Hay MD IM CT CHEST Final Result documented in this encounter Visit Diagnoses Diagnosis Encounter for screening for malignant neoplasm of lung Encounter for screening for malignant neoplasm of lung documented in this encounter Care Teams Joy Loading Machine Operator Relationship Specialty Start Date End Date Shaheen Hay MD [email or web address] PCP - General Internal Medicine 07/18/17 12/15/24 Shaheen Hay MD [address] [place] [address] [email or web address] PCP - General Internal Medicine 12/16/24 Shaheen Hay MD [address] [place] [address] [email or web address] Insurance Assigned Provider 11/16/17 09/18/19 Shaheen Hay MD [address] [place] [address] [email or web address] Insurance Assigned Provider 10/23/19 04/27/23 documented as of this encounter Additional Source Comments The information contained in this document represents components of the legal health record. It is not the complete legal health record.[facility]
[2025-08-03 15:08] LABS: Anion Gap 16 (12-20); Blood Urea Nitrogen 21 mg/dL (9-16); Calcium 10.3 mg/dL (8.4-10.2); Carbon Dioxide 24 mmol/L (22-29); Chloride 106 mmol/L (96-108); Cholesterol 161 mg/dL (<200); Estimated Glomerular Filt Rate 51; HDL Cholesterol 53 mg/dL (>40); Potassium 4.8 mmol/L (3.3-5.1); Sodium 141 mmol/L (135-145); Triglycerides 105 mg/dL (<150)
[2025-08-03 15:10] LABS: Microalbum/Creatinine Ratio Ur 16.3 ug/mg cr (<30)
== END 2025-08-03 09:44 | disposition home or self-care (01) ==
LOC: HO.HMGCLDS 09:43
PROVIDERS: PCP Internal Medicine; Visit Provider Internal Medicine
DX: E13.9 Other specified diabetes mellitus without complications (principal); E78.5 Hyperlipidemia, unspecified; I10 Essential (primary) hypertension
CPT/HCPCS: 36415; 80048; 80061; 82043; 82570; 83036